=== PATIENT | female | born 1985 | race Caucasian/White ===

== ENCOUNTER → 2016-11-29 | Outpatient (CLI) | payer BC, OTHER ==
[~2016-11-29] MED LIST: BCPILLS PO; LCTL45 PO; LORA-741 PO; NCDT21 TD; ONDA4TAB46 PO; OXYC-57 PO; OXYC5TAB PO; POTA1080 PO; POTATAB2 PO; PRED5PAK3 PO; RANI150T3 PO; TAMS0.4C38 PO; TRAM-10 PO; TRAMTAB5 PO
[2016-11-29 11:58] LABS: BLOOD UREA NITROGEN 12 mg/dl (7-18); BUN/CREATININE RATIO 12.9 (10-20); CALCIUM 8.8 mg/dl (8.5-10.1); CARBON DIOXIDE 26 mmol/L (21-32); CHLORIDE 109 mmol/L (98-107); GLUCOSE 73 mg/dl (70-99); POTASSIUM 4.6 mmol/L (3.5-5.1); SODIUM 141 mmol/L (136-145)
[2016-11-29 12:09] LABS: PHOSPHORUS 2.1 mg/dl (2.5-4.9); THYROID STIMULATING HORMONE 0.647 uIu/ml (0.300-4.500)
--- NOTE | 2016-11-29 12:31 | DIAGNOSTIC IMAGING REPORT ---
KUB CLINICAL HISTORY: Recurrent kidney stones. COMPARISON STUDY: CT of the abdomen and pelvis January 27, 2016 and KUB August 27, 2016 FINDINGS: Pelvic calcifications are unchanged and likely reflect phleboliths. Clustered small right renal calculi are noted. There may be a punctate left renal calculus. No ureteral calculi are identified. IMPRESSION: 1. No change in clustered right renal calculi and possible punctate left renal calculi. 2. No ureteral calculi identified. Electronically signed by: Juan Diego Skinner M.D. 11/29/2016 12:29 PM Dictated Date/Time: 11/29/2016 12:27 PM
== END | disposition home or self-care (01) ==
LOC: C.RAD 11:00
PROVIDERS: ATTEND Nurse Practitioner Family
DX: N20.0 Calculus of kidney (principal); E03.9 Hypothyroidism, unspecified; N18.9 Chronic kidney disease, unspecified; N39.0 Urinary tract infection, site not specified

== ENCOUNTER → 2016-12-02 | Outpatient (CLI) | payer BC, OTHER ==
[2016-12-02 12:41] LABS: COMPLETE YES; EOS % 0.5 %; HEMATOCRIT 38.5 % (37-47); LYMPH % 35.3 %; LYMPH ABS # 1.45 K/uL (1.2-3.4); MEAN CELL VOLUME 95.1 fL (80-100); MEAN CORPUSCULAR HEMOGLOBIN 32.6 pg (25-34); MEAN CORPUSCULAR HGB CONC 34.3 g/dl (32-36); MONO % 12.7 %; NEUT % 51.5 %; PLATELET COUNT 203 K/uL (130-400); RED BLOOD COUNT 4.05 M/uL (4.2-5.4); WHITE BLOOD COUNT 4.11 K/uL (4.8-10.8)
== END | disposition home or self-care (01) ==
LOC: C.LABPVFM 11:14
PROVIDERS: ATTEND Urology
DX: N20.0 Calculus of kidney (principal)

== ENCOUNTER → 2016-12-20 | Day surgery (SDC) | payer BC, OTHER ==
[2016-12-05 10:43] VITALS: Ht 165.1 cm; Wt 48.2 kg
--- NOTE | 2016-12-19 13:35 | DIAGNOSTIC IMAGING REPORT ---
KUB CLINICAL HISTORY: Recurrent kidney stones. COMPARISON STUDY: KUB November 29, 2016. FINDINGS: Clustered right renal calculi are unchanged. Pelvic calcifications represent phleboliths. No ureteral calculi are identified. Bowel gas pattern is normal. IMPRESSION: 1. No change in clustered right renal calculi. 2. No ureteral calculi identified. Electronically signed by: Juan Diego Skinner M.D. 12/19/2016 1:34 PM Dictated Date/Time: 12/19/2016 1:31 PM
[~2016-12-20] VITALS: Ht 165.1 cm; Wt 48.2 kg
[~2016-12-20] MED LIST changes: +ATROPINE SULFATE 0.1 MG/ML 5ML SYR IV PRN; +CEFAZOLIN 1000MG/55 ML D5W IV SCH; +DEXAMETHASONE SOD INJ 4 MG/ML VIAL IV PRN; +DEXAMETHASONE SOD INJ 4 MG/ML VIAL ONE; +EpHEDrine SULFATE INJ 50 MG/ML AMP IV PRN; +FENTANYL CITRATE INJ 50 MCG/1 ML 2 ML VIAL ONE; +LABETALOL HCL IV 5 MG/ML 20ML IV PRN; +LACTATED RINGER'S 1000ML 1,000 ML IV SCH; -LCTL45 PO; +LIDOCAINE HCL 2% 2 ML VIAL (20MG/ML) ONE; +METOCLOPRAMIDE HCL INJ 5 MG/ML 2 ML VIAL IV PRN; +MIDAZOLAM HCL 1 MG/ML 2ML VIAL ONE; +MoRPHine SULFATE 10 MG/ML CARP/VIAL IV PRN; -NCDT21 TD; -ONDA4TAB46 PO; +ONDANSETRON INJ 2 MG/ML 2 ML VIAL IV PRN; +ONDANSETRON INJ 2 MG/ML 2 ML VIAL ONE; -OXYC5TAB PO; +OXYCODONE/ACETAMINOPHEN 5-325 TAB PO PRN; +PATIENT'S ALLERGY INFO NEEDS ENTERED SCH; +PHENYLEPHRINE 100MCG/ML 5ML SYR IV PRN; -PRED5PAK3 PO; +PROPOFOL IV EMULSION 10 MG/ML 20 ML VIAL IV ONE; -RANI150T3 PO
--- NOTE | 2016-12-20 08:19 | History & Physical Bridge Note ---
H&P Re-Evaluation Bridge Note: I have examined the patient, reviewed the History & Physical and in the interval since the performance of the History & Physical I have noted the following changes of clinical significance: No changes noted
--- NOTE | 2016-12-20 09:05 | [facility] Post Operative Brief Note ---
Immediate Operative Summary Operative Date Dec 20, 2016. Pre-Operative Diagnosis right ureteral stones Post-Operative Diagnosis same Procedure(s) Performed right eswl Surgeon judith Smt Operator Surgeon(s) none Estimated Blood Loss none Findings right ureteral stones Specimens none
--- NOTE | 2016-12-20 09:07 | Discharge Instructions-SurgCtr ---
Discharge Instructions Visit Reason for Visit: Stones Discharge Discharge Diagnosis / Problem: stones Discharge Goals Goal(s): Therapeutic intervention Activity Recommendations Activity Limitations: resume your previous activity (take it easy today) Anesthesia . Post Anesthesia Instructions: If you have had General Anesthesia or IV Sedation: * Do not drive today. * Resume driving when surgeon permits. * Do not make important decisions or sign legal documents today. * Call surgeon for: 1. Temperature elevations greater than 101 degrees F. 2. Uncontrollable pain. 3. Excessive bleeding. 4. Persistent nausea and vomiting. 5. Medication intolerance (nausea, vomiting or rash). * For nausea and vomiting use only clear liquids such as: tea, soda, bouillon until nausea subsides, then gradually increase diet as tolerated. * If you have any concerns or questions, call your surgeon's office. If physician is unavailable and it is an emergency, call 911 or go to the nearest emergency room. . Instructions / Follow-Up Instructions / Follow-Up MEDICATIONS: Resume previous medications unless instructed otherwise by your surgeon. Resume pre-ESWL medication except for aspirin, coumadin or other blood thinners. __ Toradol 10 mg every 6 hours for initial pain. __ Lortab 5 mg 1-2 every 4 hours for pain. _x_ Percocet 5 mg 1-2 every 4 hours for pain. __ Macrodantin 50 mg x 3 a day. __ Flomax 1 tab daily one half (1/2) hour after supper. SPECIAL CARE INSTRUCTIONS: 1. Get KUB (x-ray) _x_ day before or day of office visit and bring x-ray to office __ get x-ray 2 days before and tell office you are getting x-rays when you call for the appointment. 2. Strain ALL urine. 3. Please call if you have a fever, chills, severe pain, or constant dribbling of urine. 4. Office phone number . FOLLOW UP VISIT: Please call the office to schedule a follow-up appointment at . Diet Recommendations Home Diet: resume previous diet Procedures Procedures Performed: right eswl Pending Studies Studies pending at discharge: no Medical Emergencies . Who to Call and When: Medical Emergencies: If at any time you feel your situation is an emergency, please call 911 immediately. . Non-Emergent Contact Non-Emergency issues call your: Urologist . . "Provider Documentation" section prepared by Facundo Kaur. [facility] Drug Monitoring Program Search Results: patient reviewed within database
[2016-12-20] MEDS: FENTANYL CITRATE INJ 50 MCG/1 ML 2 ML VIAL IV PRN ×3 (09:44→10:04)
--- NOTE | 2016-12-20 10:54 | Anesthesia Progress Nt - [facility] ---
Anesthesia Post Op Note Date & Time Dec 20, 2016 at 10:53 Vital Signs Pain Intensity: 6 Vital Signs Past 12 Hours Date Time Temp Pulse Resp B/P Pulse Ox O2 Delivery O2 Flow Rate FiO2 12/20/16 10:38 64 14 111/73 100 12/20/16 10:36 37.0 12/20/16 10:35 80 14 100 12/20/16 10:35 78 14 12/20/16 10:33 113/76 12/20/16 10:30 56 9 12/20/16 10:30 58 9 100 12/20/16 10:28 113/73 12/20/16 10:25 63 15 100 12/20/16 10:25 66 15 12/20/16 10:23 134/65 12/20/16 10:20 54 14 100 12/20/16 10:20 56 14 12/20/16 10:18 121/72 12/20/16 10:15 52 12 100 12/20/16 10:15 53 12 12/20/16 10:13 109/55 12/20/16 10:10 55 15 12/20/16 10:10 54 15 100 12/20/16 10:08 122/78 12/20/16 10:05 56 11 100 12/20/16 10:05 55 11 12/20/16 10:03 111/68 12/20/16 10:02 132/79 12/20/16 10:00 68 16 100 12/20/16 10:00 66 16 12/20/16 09:55 75 15 12/20/16 09:55 74 15 100 12/20/16 09:53 136/77 12/20/16 09:50 73 20 94 12/20/16 09:50 67 20 12/20/16 09:48 127/83 12/20/16 09:45 64 10 99 12/20/16 09:45 64 10 12/20/16 09:43 135/85 12/20/16 09:40 70 13 12/20/16 09:40 68 13 100 12/20/16 09:37 36.6 71 16 137/89 99 Diffusion Mask 8 12/20/16 08:01 37.5 84 16 113/79 100 Room Air Notes Mental Status: alert / awake / arousable, participated in evaluation Pt Amnestic to Procedure: Yes Nausea / Vomiting: adequately controlled Pain: adequately controlled Airway Patency, RR, SpO2: stable & adequate BP & HR: stable & adequate Hydration State: stable & adequate Anesthetic Complications: no major complications apparent
[2016-12-20 10:57] VITALS: TEMP 37
[2016-12-20 11:45] VITALS: BP 115/81; PULSE 75; O2SAT 100
--- NOTE | 2016-12-24 18:52 | OPERATIVE REPORT ---
DATE OF OPERATION: 12/20/2016 PREOPERATIVE DIAGNOSIS: Right ureteral calculus. POSTOPERATIVE DIAGNOSIS: Same. PROCEDURE: Extracorporeal shockwave lithotripsy. FINDINGS: KUB showed stone right ureter. SURGEON: Dr. Kaur. ANESTHESIA: General. DRAINS: None. COMPLICATIONS: None. SPECIMENS: None. INDICATIONS: The patient is a 31-year-old white female with a right ureteral stone being brought in for ESWL. DETAILS OF PROCEDURE: The patient was brought to the litho suite. He was correctly identified and the stone was visualized on his most recent x-rays. After the correct time out was performed the patient was positioned over the therapy head. An adequate level of anesthesia was administered. The extracorporeal shockwave lithotripsy treatment was then commenced. Please see the [place] Kidney Stone Management sheet for complete treatment summary. After completion of the procedure the patient was taken to the recovery room in stable condition. I attest to the content of the Intraoperative Record and any orders documented therein. Any exceptio ns are noted below.
== END | disposition home or self-care (01) ==
LOC: X.SURG 07:42
PROVIDERS: ATTEND Urology
DX: N20.1 Calculus of ureter (principal); M54.5 Low back pain; N39.0 Urinary tract infection, site not specified; E03.9 Hypothyroidism, unspecified; Z87.891 Personal history of nicotine dependence

== ENCOUNTER → 2016-12-31 | Outpatient (CLI) | payer BC, OTHER ==
[~2016-12-31] MED LIST changes: -ATROPINE SULFATE 0.1 MG/ML 5ML SYR IV PRN; -CEFAZOLIN 1000MG/55 ML D5W IV SCH; -DEXAMETHASONE SOD INJ 4 MG/ML VIAL IV PRN; -DEXAMETHASONE SOD INJ 4 MG/ML VIAL ONE; -EpHEDrine SULFATE INJ 50 MG/ML AMP IV PRN; -FENTANYL CITRATE INJ 50 MCG/1 ML 2 ML VIAL ONE; -LABETALOL HCL IV 5 MG/ML 20ML IV PRN; -LACTATED RINGER'S 1000ML 1,000 ML IV SCH; -LIDOCAINE HCL 2% 2 ML VIAL (20MG/ML) ONE; -METOCLOPRAMIDE HCL INJ 5 MG/ML 2 ML VIAL IV PRN; -MIDAZOLAM HCL 1 MG/ML 2ML VIAL ONE; -MoRPHine SULFATE 10 MG/ML CARP/VIAL IV PRN; -ONDANSETRON INJ 2 MG/ML 2 ML VIAL IV PRN; -ONDANSETRON INJ 2 MG/ML 2 ML VIAL ONE; -OXYCODONE/ACETAMINOPHEN 5-325 TAB PO PRN; -PATIENT'S ALLERGY INFO NEEDS ENTERED SCH; -PHENYLEPHRINE 100MCG/ML 5ML SYR IV PRN; -PROPOFOL IV EMULSION 10 MG/ML 20 ML VIAL IV ONE
--- NOTE | 2016-12-31 11:17 | DIAGNOSTIC IMAGING REPORT ---
KUB CLINICAL HISTORY: RECURRENT KIDNEY STONES nephrocalcinosis COMPARISON STUDY: 12/19/2016 FINDINGS: Small grouping of right renal calcifications are unchanged. Vascular calcifications also unchanged. Nonobstructive bowel pattern. IMPRESSION: 1. Unchanged right renal calcifications. 2. No new or interval finding. Electronically signed by: Brad Carlos M.D. 12/31/2016 11:16 AM Dictated Date/Time: 12/31/2016 11:15 AM
== END | disposition home or self-care (01) ==
LOC: C.RAD 10:58
PROVIDERS: ATTEND Urology
DX: N20.0 Calculus of kidney (principal)

== ENCOUNTER → 2017-04-01 | Outpatient (CLI) | payer OTHER ==
--- NOTE | 2017-04-01 10:11 | DIAGNOSTIC IMAGING REPORT ---
PELVIS 1 OR 2 VIEW ROUTINE CLINICAL HISTORY: Left hip pain and instability. COMPARISON STUDY: CT of the abdomen and pelvis January 27, 2016. FINDINGS: The sacroiliac joints and symphysis pubis are intact. The joint spaces are preserved. There is no fracture or suspicious lesion. There is no evidence of avascular necrosis. There is slight abnormal contour of the left femoral head/neck junction. IMPRESSION: 1. No acute fracture within the pelvis or hips. 2. Preserved left hip joint space with slight abnormal contour at the left femoral head/neck junction. Electronically signed by: Juan Diego Skinner M.D. 04/01/2017 10:10 AM Dictated Date/Time: 04/01/2017 10:06 AM
--- NOTE | 2017-04-01 10:13 | DIAGNOSTIC IMAGING REPORT ---
LEFT HIP UNILATERAL 2 VIEWS CLINICAL HISTORY: Left hip pain. Instability. COMPARISON: CT of the abdomen and pelvis January 27, 2016. FINDINGS: Alignment of left hip is anatomic. There is no fracture or suspicious lesion. Joint spaces preserved. There is slight osteophytosis of the left hip. IMPRESSION: 1. No acute fracture. 2. Preserved left hip joint space with mild osteophytosis of the left hip and slight abnormal contour of the femoral head/neck junction. Electronically signed by: Juan Diego Skinner M.D. 04/01/2017 10:11 AM Dictated Date/Time: 04/01/2017 10:11 AM
== END | disposition home or self-care (01) ==
LOC: C.RADPV 09:47
PROVIDERS: ATTEND Nurse Practitioner
DX: M25.352 Other instability, left hip (principal)

== ENCOUNTER → 2017-04-23 | Outpatient (CLI) | payer OTHER | END | disposition home or self-care (01) | LOC: C.LABPVFM 11:45 | PROVIDERS: ATTEND Family Medicine | DX: N39.0 Urinary tract infection, site not specified (principal) ==

== ENCOUNTER 2017-06-17 11:50 | Emergency (ER) | payer OTHER ==
[~2017-06-17] VITALS: Ht 167.6 cm; Wt 52.7 kg
[~2017-06-17 11:50] MED LIST changes: -POTATAB2 PO; -TAMS0.4C38 PO; -TRAMTAB5 PO
[2017-06-17 11:55] VITALS: TEMP 37.3; Ht 167.6 cm; Wt 52.7 kg
[2017-06-17 12:58] LABS: URINE APPEARANCE CLEAR (CLEAR); URINE BILIRUBIN NEG (NEG); URINE COLOR YELLOW; URINE EPITHELIAL CELL AUTO 20-30 /lpf (0-5); URINE NITRITE NEG (NEG); URINE PH 7.5 (4.5-7.5); URINE SPECIFIC GRAVITY 1.008 (1.000-1.030); UROBILINOGEN NEG (NEG); ZZUR CULT IF INDIC CLEAN CATCH NO
[2017-06-17 12:59] LABS: MANUAL MICROSCOPIC REQUIRED? NO; REVIEW REQ? NO
[2017-06-17] MEDS ORDERED: POTATAB2 PO (13:16)
[2017-06-17] MEDS ORDERED: TRAMTAB5 PO (13:39)
--- NOTE | 2017-06-17 13:40 | DIAGNOSTIC IMAGING REPORT ---
KUB CLINICAL HISTORY: left sided flank pain flank pain COMPARISON STUDY: 12/31/2016 FINDINGS: Unchanged right renal calcifications compared to the prior study. Poor visibility of the left kidney although new or additional calcifications are identified. Small pelvic vascular calcifications are unchanged. Nonobstructive bowel pattern. IMPRESSION: Multiple right renal calcifications unchanged prior study. No acute or interval process. The above report was generated using voice recognition software. It may contain grammatical, syntax or spelling errors. Electronically signed by: Brad Carlos M.D. 06/17/2017 1:39 PM Dictated Date/Time: 06/17/2017 1:38 PM
--- NOTE | 2017-06-17 13:44 | EMERGENCY ROOM VISIT NOTE ---
History Report prepared by Rosalvaibisrael: Mitchel Almaguer Under the Supervision of: Dr. Pipe Quinonez M.D. First contact with patient: 12:42 Chief Complaint: FLANK PAIN Stated Complaint: POSS. KIDNEY STONE LODGED ON LEFT SIDE History of Present Illness The patient is a 31 year old female who presents to the Emergency Room with complaints of intermittent left flank pain beginning yesterday. She has a history of kidney stones. Her pain radiates into her abdomen. The patient describes her pain as "sharp" and "shooting". Her pain is not worsened with touch. Source of History: patient Onset: Yesterday Position: other (left flank) Quality: sharp, other ("shooting") Timing: intermittent Associated Symptoms: + abdominal pain Review of Systems See HPI for pertinent positives & negatives. A total of 10 systems reviewed and were otherwise negative. Past Medical & Surgical Medical Problems: (1) Constipation (2) Dyspnea Surgical Problems: (1) S/P tubal ligation Family History Patient reports no known family medical history. Social History Smoking Status: Current Every Day Smoker Alcohol Use: occasionally Marital Status: Housing Status: lives with family Occupation Status: employed Current/Historical Medications Scheduled Control Pills ( Control Pills), 1 TAB PO QAM Potassium Citrate (Alkalinizer (Urocit-K 10), 1 TAB PO TID Tamsulosin Hcl (Flomax), 0.4 MG PO HS Tramadol/Acetaminophen (Ultracet), 1 TAB PO UD Scheduled PRN Lorazepam (Ativan), 0.5 MG PO TID PRN for Anxiety Oxycodone/Acetaminophen 5MG/325MG (Percocet 5MG/325MG), 1-2 TAB PO Q4H PRN for Pain Allergies Coded Allergies: Levofloxacin (Unverified Allergy, Severe, 'KILLS GOOD BACTERIA INSIDE HER' , 06/17/17) Ketorolac (Verified Allergy, Unknown, "SPACE OUT/BLACK OUT", 06/17/17) Penicillin V (Verified Adverse Reaction, Mild, YEAST INFECTION, 06/17/17) Physical Exam Vital Signs Date Time Temp Pulse Resp B/P (MAP) Pulse Ox O2 Delivery O2 Flow Rate FiO2 06/17/17 14:10 80 18 109/85 98 06/17/17 13:41 84 16 102/61 100 Room Air 06/17/17 11:55 37.3 88 20 118/80 100 Room Air Physical Exam GENERAL: Patient is a healthy-appearing well-nourished female HEAD: Normocephalic atraumatic EYES: Ocular movements intact pupils equal and react to light OROPHARYNX mucous membranes are moist no exudates present no erythema or edema present NECK: Supple no nuchal rigidity CHEST: Good equal expansion LUNGS: Clear and equal to auscultation CARDIAC: Normal S1 and S2 ABDOMEN: Soft nontender no guarding BACK: No CVA tenderness EXTREMITIES: No pain upon palpation normal muscle strength in all groups no clubbing cyanosis or edema NEURO: Patient is following commands and answering questions appropriately. Alert and oriented x3 Cranial Nerves 2-12 grossly intact Medical Decision & Procedures ER Provider Diagnostic Interpretation: X-ray results as stated below per interpretation by me and the radiologist: KUB FINDINGS: Unchanged right renal calcifications compared to the prior study. Poor visibility of the left kidney although new or additional calcifications are identified. Small pelvic vascular calcifications are unchanged. Nonobstructive bowel pattern. IMPRESSION: Multiple right renal calcifications unchanged prior study. No acute or interval process. The above report was generated using voice recognition software. It may contain grammatical, syntax or spelling errors. Electronically signed by: Brad Carlos M.D. Laboratory Results Test 06/17/17 12:30 Urine Color YELLOW Urine Appearance CLEAR (CLEAR) Urine pH 7.5 (4.5-7.5) Urine Specific [place] 1.008 (1.000-1.030) Urine Protein NEG (NEG) Urine Glucose (UA) NEG (NEG) Urine Ketones NEG (NEG) Urine Occult Blood TRACE (NEG) Urine Nitrite NEG (NEG) Urine Bilirubin NEG (NEG) Urine Urobilinogen NEG (NEG) Urine Leukocyte Esterase NEG (NEG) Urine WBC (Auto) 1-5 /hpf (0-5) Urine RBC (Auto) 0-4 /hpf (0-4) Urine Hyaline Casts (Auto) 0 /lpf (0-5) Urine Epithelial Cells (Auto) 20-30 /lpf (0-5) Urine Bacteria (Auto) NEG (NEG) Urine Test NEG (NEG) Labs reviewed by ED physician. Medications Administered Medications (Trade) Dose Ordered Sig/Marci Route Start Time Stop Time Status Last Admin Dose Admin Ibuprofen (Motrin Tab) 600 mg NOW STAT PO 06/17/17 13:58 06/17/17 13:59 DC 06/17/17 14:05 600 MG Tamsulosin HCl (Flomax Cap) 0.4 mg NOW STAT PO 06/17/17 13:58 06/17/17 13:59 DC 06/17/17 14:04 0.4 MG ED Course 1251: Past medical records reviewed. The patient was evaluated in room B5. A complete history and physical examination was performed. 1358: Ordered Flomax Cap 0.4 mg PO, Motrin Tab 600 mg PO. 1345: Upon reexamination the patient is resting. I offered CT, and blood-work, but she declined. I discussed results and treatment plan with the patient. She verbalizes agreement and understanding. The patient is ready for discharge. 1415: Ordered Percocet 5/325 mg Home Pack PO. Medical Decision Differential diagnosis: Etiologies such as renal colic, appendicitis, diverticulitis, mesenteric ischemia, aortic pathology, infections, inflammatory bowel disease, PUD, biliary pathology, UTI, as well as others were entertained. This is a 31-year-old female who presents emergency department complaining of left-sided flank pain. The patient is requesting a KUB x-ray however no can a stones are noted on the KUB. At this point I recommended an ultrasound or a CAT scan to better assess the patient's pain and at least laboratory work however the patient is refusing this. She is requesting pain medication therefore she was given ibuprofen as well as Flomax in the emergency department. I did stressed the need for follow-up with the patient's urologist. Serial abdominal examinations were performed on the patient in the emergency department and at no time did the patient exhibited a surgical abdomen. The patient has no evidence of infection on her urine and she is not . Impression Primary Impression: Left flank pain Scribe Attestation The scribe's documentation has been prepared under my direction and personally reviewed by me in its entirety. I confirm that the note above accurately reflects all work, treatment, procedures, and medical decision making performed by me. Departure Information Dispostion Home / Self-Care Prescriptions Tamsulosin Hcl (FLOMAX) 0.4 Mg Cap 0.4 MG PO HS for 10 Days, #10 CAP Prov: Pipe Quinonez MD 06/17/17 Oxycodone/Acetaminophen 5MG/325MG (PERCOCET 5MG/325MG) Tab 1-2 TAB PO Q4H Y for Pain, #14 TAB Prov: Pipe Quinonez MD 06/17/17 Referrals Nikolai Dudley M.D. (PCP) Forms HOME CARE DOCUMENTATION FORM, IMPORTANT VISIT INFORMATION Patient Instructions Kidney Stones Expectant Therapy, Kidney Stones Prevent, Kidney Stones Risk, Kidney Stones Tx Meds, My [facility] Additional Instructions Follow up with DR Clancy's office You received narcotic or benzodiazepene medication while in the emergency room today. Do not drive, operate heavy machinery, or drink alcohol under the influence of this medication. Take 600 mg Ibuprofen every 6 hours Take Percocet for breakthrough pain Culture results are usually available in approx 48 hours You have been examined and treated today on an emergency basis only. This is not a substitute for, or an effort to provide, complete comprehensive medical care. It is impossible to recognize and treat all injuries or illnesses in a single emergency department visit. It is therefore important that you follow up closely with Dr Dudley. Call as soon as possible for an appointment. Thank you for your time and consideration. I look forward to speaking with you again soon. Please don't hesitate to call us if you have any questions.
[2017-06-17] MEDS ORDERED: TAMSULOSIN HCL 0.4 MG CAP PO STA (13:58)
[2017-06-17] MEDS ORDERED: IBUPROFEN 600 MG TAB PO STA (13:58)
[2017-06-17] MEDS ORDERED: OXYC-57 PO (14:03)
[2017-06-17] MEDS ORDERED: TAMS0.4C38 PO (14:03)
[2017-06-17 14:10] VITALS: BP 109/85; PULSE 80; O2SAT 98
[2017-06-17] MEDS ORDERED: PERCOCET HOME PACK PO ONE (14:15)
== END 2017-06-17 14:10 | disposition home or self-care (01) ==
LOC: C.EDB 11:54
DX: R10.9 Unspecified abdominal pain (principal); R06.00 Dyspnea, unspecified; F17.200 Nicotine dependence, unspecified, uncomplicated

== ENCOUNTER → 2017-07-29 | Outpatient (CLI) | payer OTHER ==
[~2017-07-29] MED LIST changes: -POTA1080 PO; +POTATAB2 PO; -TRAM-10 PO; +TRAMTAB5 PO
--- NOTE | 2017-07-29 14:42 | DIAGNOSTIC IMAGING REPORT ---
KUB CLINICAL HISTORY: 31 years-old Female presenting with RECURRENT KIDNEY STONES. TECHNIQUE: Single supine view of the abdomen was obtained. COMPARISON: 06/17/2017. FINDINGS: Renal calculus noted in the right kidney. Previous seen noted punctate calculus in the left kidney on CT from 01/27/2016 is not radiographically apparent. Multiple phleboliths noted. No ossification along the courses of the ureters. Nonobstructive bowel gas pattern. No gross pneumoperitoneum. Lung bases clear. Osseous structures normal. IMPRESSION: 1. Right nephrolithiasis. No radiographically apparent left renal calculi. Electronically signed by: Seth Echeverria M.D. 07/29/2017 2:41 PM Dictated Date/Time: 07/29/2017 2:38 PM
== END | disposition home or self-care (01) ==
LOC: C.RAD 14:10
PROVIDERS: ATTEND Urology
DX: N20.0 Calculus of kidney (principal)

== ENCOUNTER → 2017-08-29 | Outpatient (CLI) | payer OTHER | END | disposition home or self-care (01) | LOC: C.LABPVFM 17:38 | PROVIDERS: ATTEND Nurse Practitioner Family | DX: R30.0 Dysuria (principal) ==

== ENCOUNTER → 2017-10-29 | Outpatient (CLI) | payer OTHER ==
[~2017-10-29] MED LIST changes: +KRV28 PO; +OXYC-643 PO; +PHEN-775 PO; +TAMS0.4C38 PO
== END | disposition home or self-care (01) ==
LOC: C.PAPS 09:10
PROVIDERS: ATTEND Obstetrics & Gynecology
DX: Z12.4 Encounter for screening for malignant neoplasm of cervix (principal); Z11.51 Encounter for screening for human papillomavirus (HPV)

== ENCOUNTER → 2017-11-24 | Outpatient (CLI) | payer OTHER ==
[~2017-11-24] MED LIST changes: -KRV28 PO; -OXYC-643 PO; -PHEN-775 PO; -TAMS0.4C38 PO
--- NOTE | 2017-11-24 11:43 | DIAGNOSTIC IMAGING REPORT ---
SOFT TISS HEAD/NECK-THYROID CLINICAL HISTORY: 32 years-old Female with E04.2 Multiple thyroid [id number]. Multinodular thyroid COMPARISON: Thyroid ultrasound 01/15/2016 TECHNIQUE: Multiple real time sonographic images of the thyroid were obtained accessing gutiérrez scale appearance and color doppler flow. FINDINGS: MEASUREMENTS: Right lobe: 4.7 x 2.7 x 1.0 cm Left lobe: 4.4 x 2.0 x 1.0 cm Isthmus: 0.2 cm PARENCHYMA: The thyroid parenchymal echotexture is mildly heterogeneous. NODULES: There are multiple hypoechoic cystic lesions again seen bilaterally containing nonshadowing echogenic foci suggesting internal colloid. The largest lesion on the right measures 0.7 cm within the upper pole. The largest lesion on the left measures 1.0 cm within the mid pole region. No solid or suspicious nodules identified. 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 No suspicious thyroid nodules identified. The above report was generated using voice recognition software. It may contain grammatical, syntax or spelling errors. Electronically signed by: Chuy Edmondson M.D. 11/24/2017 11:41 AM Dictated Date/Time: 11/24/2017 11:38 AM
== END | disposition home or self-care (01) ==
LOC: C.ULTR 10:25
PROVIDERS: ATTEND Physician Assistant
DX: E04.2 Nontoxic multinodular goiter (principal)

== ENCOUNTER → 2017-12-10 | Day surgery (SDC) | payer OTHER ==
[2017-11-28 14:45] VITALS: BMI 19.0
[~2017-12-10] VITALS: Ht 167.6 cm; Wt 53.2 kg
[~2017-12-10] MED LIST changes: +ACETAMINOPHEN 1000 MG/100 ML IV IV ONE; +ATROPINE SULFATE 0.1 MG/ML 5ML SYR IV PRN; -BCPILLS PO; +BELLADONNA/OPIUM SUPP 60 MG SUPP PR ONE; +CEFAZOLIN 2000MG IV PUSH 10 ML IV SCH; +CONRAY 30% 150ML BOTTLE ONE; +DEXAMETHASONE SOD INJ 4 MG/ML VIAL ONE; +DexMEDEtomidine HCL IV 100 MCG/ML VIAL IV ONE; +FENTANYL CITRATE INJ 50 MCG/1 ML 2 ML VIAL IV PRN; +FENTANYL CITRATE INJ 50 MCG/1 ML 2 ML VIAL ONE; +KETAMINE HCL INJ 50 MG/ML 10 ML VIAL ONE; +KRV28 PO; +LACTATED RINGER'S 1000ML 1,000 ML IV SCH; +LIDOCAINE HCL 2% 2 ML VIAL (20MG/ML) ONE; +MIDAZOLAM HCL 1 MG/ML 2ML VIAL ONE; +NURSING VERBAL MED ORDER ONE; +ONDANSETRON INJ 2 MG/ML 2 ML VIAL IV PRN; +ONDANSETRON INJ 2 MG/ML 2 ML VIAL ONE; -OXYC-57 PO; +OXYC-643 PO; +OXYCODONE/ACETAMINOPHEN 5-325 TAB ONE; +PHEN-775 PO; +PHENAZOPYRIDINE HCL 200 MG TAB PO ONE; +PROPOFOL IV EMULSION 10 MG/ML 20 ML VIAL IV ONE; +SODIUM CHLORIDE 0.9% INJ 10 ML VIAL ONE; +TAMS0.4C38 PO; -TRAMTAB5 PO
[2017-12-10 07:48] VITALS: BP 109/67; PULSE 68; TEMP 37.1; O2SAT 99; Ht 167.6 cm; Wt 53.2 kg
--- NOTE | 2017-12-10 09:31 | [facility] Operative Report ---
Operative Report Operative Date Dec 10, 2017. Pre-Operative Diagnosis Right Kidney Stone Post-Operative Diagnosis SAME PREOP Procedure(s) Performed Cystoscopy, Right Ureteroscopy; Anderson Placement Surgeon Dr. 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 We plan a right ureteroscopy to see if we can gain entry into the diverticulum to treat the stone. Description of Procedure Patient was given general LMA anesthesia and was placed in lithotomy position. Her genitals were prepped and draped in sterile fashion. Time out held with team. I placed a 17 fr sheath with 30 degree lens to carefully examine the urethra. Patient has normal urethra free of any stricture. The scope passed easily. I removed that scope and placed a 21 fr rigid cystoscope to bladder easily. The urethra is unremarkable. 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 The bladder is normal. I placed a road runner wire up the upper pole ureter (lower more distal UO) ureter and watched the wire reach the upper pole of kidney on fluoro. Her stone is radio-opaque. I then removed cystoscope and Used a dual lumen catheter to calibrate the UO and this catheter passed very easily. I placed a second wire to the upper pole. I passed a flexible ureteroscope easily over the road runner wire up into the upper pole moiety. No stone is seen. I carefully examined the lower calyx of the upper pole moiety and the upj for any os which might lead into the diverticulum. I found none. I injected dye into the upper pole moiety and I do think the diverticulum fills but again, I cannot find the communication with the diverticulum. I slowly removed the scope and the ureter seems normal with no trauma. I elected not to leave a stent. I left bladder full and placed a 14 fr anderson catheter and inflated the balloon with 5mL water. I placed a belladonna and opium suppository for post-op pain. She transferred to recovery under my escort, in stable condition. Plan: Home today Pyridium for dysuria x 3 days flomax daily until pain free oral pain meds as needed remove anderson at home in 48-72 hours. ASA 2 clean contaminated case 56 seconds fluoro ancef antibiotic saturation equipment operator I attest to the content of the Intraoperative Record and any orders documented therein. Any exceptions are noted below.
--- NOTE | 2017-12-10 09:41 | Discharge Instructions ---
Discharge Instructions Date of Service Dec 10, 2017. 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 Instructions / Follow-Up Instructions / Follow-Up remove anderson catheter in 2-3 days once largely off narcotics Current Hospital Diet Patient's current hospital diet: Discharge Diet Recommended Diet: Regular Diet Fluid Restriction: None Procedures Procedures Performed: Cystoscopy, Right Ureteroscopy; Anderson Placement Pending Studies Studies pending at discharge: no Medical Emergencies . Who to Call and When: Medical Emergencies: If at any time you feel your situation is an emergency, please call 911 immediately. . Non-Emergent Contact Non-Emergency issues call your: Urologist ([phone]) Call Non-Emergent contact if: temperature is above 100.5 . . "Provider Documentation" section prepared by Diane Molina. . VTE Core Measure Inpt VTE Proph given/why not?: [facility] [place] Drug Monitoring Program Search Results: patient reviewed within database, no issues identified
--- NOTE | 2017-12-10 09:59 | Anesthesiology Progress Note ---
Anesthesia Post Op Note Date & Time Dec 10, 2017 at 09:59 Vital Signs Pain Intensity: 0 Vital Signs Past 12 Hours Date Time Temp Pulse Resp B/P (MAP) Pulse Ox O2 Delivery O2 Flow Rate FiO2 12/10/17 09:41 100/71 12/10/17 09:38 51 16 100 12/10/17 09:38 52 16 12/10/17 09:35 87/53 12/10/17 09:33 54 12 100 12/10/17 09:33 54 12 12/10/17 09:30 82/48 12/10/17 09:28 56 14 12/10/17 09:28 57 14 100 12/10/17 09:26 89/45 12/10/17 09:23 58 10 95/40 100 12/10/17 09:23 36.6 57 16 95/40 100 Oxymask 10 12/10/17 09:23 58 10 12/10/17 07:48 37.1 68 16 109/67 (81) 99 Room Air Notes Mental Status: alert / awake / arousable, participated in evaluation Pt Amnestic to Procedure: Yes Nausea / Vomiting: adequately controlled Pain: adequately controlled Airway Patency, RR, SpO2: stable & adequate BP & HR: stable & adequate Hydration State: stable & adequate Anesthetic Complications: no major complications apparent
[2017-12-10 10:08] VITALS: BP 103/83; PULSE 56; TEMP 36.6; O2SAT 100
[2017-12-10 10:35] VITALS: BP 107/61; PULSE 52; TEMP 36.7; O2SAT 99
[2017-12-10 11:05] VITALS: BP 110/64; PULSE 54; O2SAT 99
[2017-12-10 11:30] VITALS: BP 118/82; PULSE 70; TEMP 36.7; O2SAT 100
--- NOTE | 2017-12-10 12:44 | DIAGNOSTIC IMAGING REPORT ---
RETROGRADE INCLUDES KUB CLINICAL HISTORY: RT CYSTO/LASER/STENT COMPARISON STUDY: No previous studies for comparison. FINDINGS: 57 seconds of fluoroscopic time was utilized. 5 fluoroscopic spot images are provided for interpretation. There is a possible calculus at the L3 level. There is additional possible calculus at the renal pelvic level. A guidewire was advanced into the renal pelvis. A ureteroscope was then advanced to the level of the renal pelvis. IMPRESSION: Intraprocedural fluoroscopic spot images as described above. Electronically signed by: Pilo Leonardo M.D. 12/10/2017 12:43 PM Dictated Date/Time: 12/10/2017 12:40 PM
== END | disposition home or self-care (01) ==
LOC: C.ACU 07:09
PROVIDERS: ATTEND Urology
DX: N20.0 Calculus of kidney (principal); N28.89 Other specified disorders of kidney and ureter; R39.11 Hesitancy of micturition